=== PATIENT | female | born 1965 | race Caucasian/White ===

== ENCOUNTER 2016-08-27 12:14 | Day surgery (SDC) | payer OTHER ==
[~2016-08-27] VITALS: Ht 167.6 cm; Wt 90.7 kg
[~2016-08-27 12:14] MED LIST: ADVAIR 250/501 DISK IH; ADVAIR HFA120 INHALA IH; AMBIEN CR12.5 MG PO; AUGMENTIN875 MG PO; CARAFATE1 GM PO; CHANTIX1 MG PO; COUMADIN3 MG PO; DAILY VITAMIN1 EAC8 PO; DICYCLOMINE HCL20 MG PO; DILAUDID2 MG PO; DILAUDID4 MG PO; DILAUDID8 MG PO; DURAGESIC100 MCG TD; DURAGESIC25 MCG TD; ERGOCALCIF50000 UNIT PO; FENTANYL1 EAC1 TD; FIORICET,ESG1 TABLET PO; FLUOXETINE HCL20 MG PO; FLUOXETINE HCL40 MG PO; FLUOXETINE HCL60 MG PO; FUROSEMIDE20 MG PO; LEVAQUIN500 MG PO; LOVENOX100 MG/1 M SC; LOVENOX80 MG/0.8 SC; LYRICA150 MG PO; MAGNESIUM OXID400 MG PO; METOPROLOL SUCC25 MG PO; OXCARBAZEPINE150 MG PO; OXYCODONE HCL30 MG PO; PERCOCET 5/31 TABLET PO; POTASSIUM GLUCO99 M1 PO; PREDNISONE10 MG PO; PROMETHAZINE HC25 M1 PO; PROTONIX40 MG PO; PROVENTIL,2.5 MG/0.5 AEROSOL; SEROQUEL100 MG PO; SPIRIVA RESPIMAT4 GM IH; SPIRIVA1 INHALATI IH; TIZANIDINE HCL4 MG PO; TOPIRAMATE100 MG PO; VENTOLIN HFA18 GM IH; VITAMIN B-125000 MC1 PO; VITAMIN B-125000 MCG SL; VITAMIN B12-FO1 EACH SL; WELLBUTRIN75 MG PO; ZANAFLEX4 M1 PO; ZOFRAN4 MG PO; ZOLPIDEM TARTRA10 MG PO
[2016-08-27 13:15] VITALS: BP 117/63
[2016-08-27 13:38] LABS: INTER. NORMALIZED RATIO 1.1; PROTHROMBIN TIME 10.7 (9.2-11.2)
[2016-08-27 16:40] VITALS: BP 142/69
[2016-08-27 17:15] VITALS: BP 125/60
== END 2016-08-27 17:20 | disposition home or self-care (01) ==
LOC: SDC 12:14
PROVIDERS: Orthopaedic Surgery
PROC: 01Q53ZZ Repair Median Nerve, Percutaneous Approach (ICD-10-PCS; principal; 2016-08-27)
DX: G56.01 Carpal tunnel syndrome, right upper limb (principal); J44.9 Chronic obstructive pulmonary disease, unspecified; K21.9 Gastro-esophageal reflux disease without esophagitis; F17.200 Nicotine dependence, unspecified, uncomplicated
CPT/HCPCS: 85610; J0690; J1170; J2250; J3010; S0020

== ENCOUNTER 2016-10-02 13:00 | Day surgery (SDC) | payer OTHER ==
[~2016-10-02] VITALS: Ht 167.6 cm; Wt 89.3 kg
[2016-10-02 13:27] VITALS: BP 127/57
[2016-10-02 13:56] LABS: INTER. NORMALIZED RATIO 1.1; PROTHROMBIN TIME 10.9 (9.2-11.2)
[2016-10-02 16:50] VITALS: BP 120/73
== END 2016-10-02 17:55 | disposition home or self-care (01) ==
LOC: SDC 13:00
PROVIDERS: Orthopaedic Surgery
PROC: 01N50ZZ Release Median Nerve, Open Approach (ICD-10-PCS; principal; 2016-10-02)
DX: G56.02 Carpal tunnel syndrome, left upper limb (principal); Z79.01 Long term (current) use of anticoagulants
CPT/HCPCS: 85610; J0690; J1170; J2250; J3010; S0020

== ENCOUNTER → 2017-03-12 | Outpatient (CLI) | payer OTHER ==
[~2017-03-12] MED LIST changes: +ROXICODONE15 MG PO
== END | disposition home or self-care (01) ==
DX: M16.12 Unilateral primary osteoarthritis, left hip (principal); R26.2 Difficulty in walking, not elsewhere classified; M25.552 Pain in left hip; M25.652 Stiffness of left hip, not elsewhere classified; M62.81 Muscle weakness (generalized); Z74.1 Need for assistance with personal care
CPT/HCPCS: 97110 GP; 97150 GO; 97161 GP; 97165 GO; G8978 GP; G8979 GP; G8980 GP; G8987 GO; G8988 GO; G8989 GO

== ENCOUNTER 2017-03-17 22:07 | Inpatient (IN) | payer OTHER ==
[~2017-03-17] VITALS: Ht 167.6 cm; Wt 90.9 kg
[2017-03-18 05:59] VITALS: BP 115/62
[2017-03-18 06:13] LABS: INTER. NORMALIZED RATIO 1.1
[2017-03-18 06:20] LABS: PROTHROMBIN TIME 12.2 SEC (10.2-12.9)
[2017-03-18 11:03] LABS: HEMATOCRIT 31.1 % (36.0-46.0); MCH 29.6 PG (29.0-34.0); MCHC 33.1 G/DL (30.0-36.0); MCV 89.4 FL (83-99); MEAN PLAT.VOLUME 12.7 uM^3 (9.5-12.4); RBC DIS.WIDTH-CV 13.3 % (11.8-14.6); RBC DIS.WIDTH-SD 43.2 % (39-53); WHITE BLOOD COUNT 17.3 K/uL (4.1-10.2)
[2017-03-18 11:41] LABS: PLAT.SUFFICIENCY DECREASED; PLATELET COUNT 83 K/uL (156-360); RED BLOOD COUNT 3.48 M/uL (3.80-5.20)
[2017-03-18 12:35] VITALS: BP 142/71
[2017-03-18] MEDS ORDERED: COUMADIN3 MG PO (14:53)
[2017-03-18 15:24] VITALS: BP 106/58
[2017-03-18 20:03] VITALS: BP 112/64
[2017-03-18 23:30] VITALS: BP 109/61
[2017-03-19] VITALS (13 sets, daily range): BP systolic 100–141; BP diastolic 56–75
[2017-03-19 05:28] LABS: INTER. NORMALIZED RATIO 1.2; PROTHROMBIN TIME 13.6 SEC (10.2-12.9)
[2017-03-19 05:40] LABS: ANION GAP 6 MEQ/L (2-14); CHLORIDE 103 MEQ/L (99-109); GFR ESTIMATE (CALCULATED) > 59 mL/min/; GLUCOSE 122 mg/dL (70-99); SAMPLE HEMOLYSIS CHECK 0; SAMPLE ICTERIC CHECK 0; SAMPLE LIPEMIA CHECK 0; SODIUM 137 MEQ/L (136-147); UREA NITROGEN (BUN) 9 mg/dL (9-23)
[2017-03-19 05:45] LABS: HEMATOCRIT 24.4 % (36.0-46.0); MCV 87.8 FL (83-99)
[2017-03-20] VITALS: BP 99/49
[2017-03-20 04:20] VITALS: BP 106/58
[2017-03-20 05:33] LABS: HEMATOCRIT 25.9 % (36.0-46.0); MCV 87.8 FL (83-99)
[2017-03-20 06:03] LABS: INTER. NORMALIZED RATIO 1.4; PROTHROMBIN TIME 15.8 SEC (10.2-12.9)
[2017-03-20 08:19] VITALS: BP 116/57
[2017-03-20] MEDS ORDERED: OXYCODONE-APAP1 EACH PO (08:27)
[2017-03-20] MEDS ORDERED: SENNA PLUS TAB1 EACH PO (08:27)
[2017-03-20 12:00] VITALS: BP 95/240
== END 2017-03-20 14:37 | disposition home health service (06) | DRG 470 ==
LOC: 2SOUTH → ENRESERV 22:07 → 3WEST 03-18 05:23 → 2SOUTH 03-18 05:23 → 3WEST 03-18 12:17 → 2SOUTH 03-18 13:06 → 3WEST 03-20 14:37
PROVIDERS: Internal Medicine Hematology & Oncology; Orthopaedic Surgery
PROC: 0SRB02A Replacement of Left Hip Joint with Metal on Polyethylene Synthetic Substitute, Uncemented, Open Approach (ICD-10-PCS; principal; 2017-03-18)
DX: M16.12 Unilateral primary osteoarthritis, left hip (principal); D62 Acute posthemorrhagic anemia; M79.7 Fibromyalgia; E78.5 Hyperlipidemia, unspecified; K21.9 Gastro-esophageal reflux disease without esophagitis; F17.210 Nicotine dependence, cigarettes, uncomplicated; I35.1 Nonrheumatic aortic (valve) insufficiency; G89.29 Other chronic pain; G47.00 Insomnia, unspecified; Z95.2 Presence of prosthetic heart valve; Z98.84 Bariatric surgery status; Z79.01 Long term (current) use of anticoagulants
CPT/HCPCS: 73501; 80048; 85014; 85018; 85027; 85610; 85730; 86850; 86900; 86901; 86920; 97530 GO; C1713; J0131; J0330; J0690; J1100; J1170; J2250; J2405; J3010; J7050; P9016

== ENCOUNTER 2017-06-12 01:15 | Emergency (ER) | payer OTHER ==
[~2017-06-12] VITALS: Ht 167.6 cm; Wt 90.9 kg
[~2017-06-12 01:15] MED LIST changes: +OXYCODONE-APAP1 EACH PO; +SENNA PLUS TAB1 EACH PO
[2017-06-12 01:48] LABS: HEMATOCRIT 31.9 % (36.0-46.0); MCH 25.6 PG (29.0-34.0); MCHC 31.7 G/DL (30.0-36.0); MEAN PLAT.VOLUME 12.3 uM^3 (9.5-12.4); PLATELET COUNT 171 K/uL (156-360); RBC DIS.WIDTH-SD 44.8 % (39-53); RED BLOOD COUNT 3.94 M/uL (3.80-5.20); WHITE BLOOD COUNT 5.8 K/uL (4.1-10.2)
[2017-06-12 02:00] LABS: CHLORIDE 110 mEq/L (99-109); POTASSIUM 4.1 mEq/L (3.7-5.4); SODIUM 140 mEq/L (136-147)
[2017-06-12 02:02] LABS: GLUCOSE 95 mg/dL (70-99)
[2017-06-12 02:03] LABS: ANION GAP 6 MEQ/L (2-14)
[2017-06-12 02:05] LABS: GFR ESTIMATE (CALCULATED) > 59 mL/min/
[2017-06-12 02:06] LABS: UREA NITROGEN (BUN) 13 mg/dL (9-23)
[2017-06-12 02:09] LABS: TROP-I INTERPRETATION NEGATIVE; TROPONIN-I 0.01 ng/mL (0.0-0.30)
[2017-06-12 03:05] LABS: INTER. NORMALIZED RATIO 1.8; PROTHROMBIN TIME 20.9 SEC (10.2-12.9)
[2017-06-12] MEDS ORDERED: MEDROL DOSEPAK4 MG PO (03:31)
[2017-06-12 03:40] VITALS: BP 119/70
== END 2017-06-12 03:41 | disposition home or self-care (01) ==
LOC: EME 01:15
PROVIDERS: Emergency Medicine
DX: M25.552 Pain in left hip (principal); M54.32 Sciatica, left side; G89.29 Other chronic pain; J44.9 Chronic obstructive pulmonary disease, unspecified; M79.7 Fibromyalgia; F32.9 Major depressive disorder, single episode, unspecified; F41.9 Anxiety disorder, unspecified; K21.9 Gastro-esophageal reflux disease without esophagitis; Z95.2 Presence of prosthetic heart valve; Z79.01 Long term (current) use of anticoagulants; Z98.84 Bariatric surgery status; Z87.891 Personal history of nicotine dependence
CPT/HCPCS: 71020; 80048; 84484; 85027; 85610; 93005; 99281; 99284; J3010

== ENCOUNTER 2017-06-12 21:01 | Emergency (ER) | payer OTHER ==
[~2017-06-12] VITALS: Ht 167.6 cm; Wt 90.9 kg
[~2017-06-12 21:01] MED LIST changes: +MEDROL DOSEPAK4 MG PO
[2017-06-12 22:37] LABS: EOSINOPHIL COUNT 0.1 K/uL (0-0.3); HEMATOCRIT 33.3 % (36.0-46.0); IMMATURE GRANULOCYTE (%) 0.3 % (0.0-0.7); INSTRUMENT ABS NEUTROPHIL CT 4.6 K/uL; MCH 25.5 PG (29.0-34.0); MCHC 32.1 G/DL (30.0-36.0); MCV 79.3 FL (83-99); MEAN PLAT.VOLUME 13.2 uM^3 (9.5-12.4); MONOCYTE (%) 7.3 % (3-12); MONOCYTE COUNT 0.5 K/uL (0-0.8); NEUTROPHIL (%) 75.1 % (45-76); NEUTROPHIL COUNT 4.6 K/uL (1.8-6.4); PLATELET COUNT 193 K/uL (156-360); RBC DIS.WIDTH-CV 15.1 % (11.8-14.6); RBC DIS.WIDTH-SD 43.4 % (39-53); WHITE BLOOD COUNT 6.2 K/uL (4.1-10.2)
[2017-06-12 22:45] LABS: PROTHROMBIN TIME 22.8 SEC (10.2-12.9)
[2017-06-12 22:50] LABS: CHLORIDE 109 mEq/L (99-109); POTASSIUM 4.8 mEq/L (3.7-5.4); SODIUM 142 mEq/L (136-147)
[2017-06-12 22:52] LABS: GLUCOSE 94 mg/dL (70-99)
[2017-06-12 22:53] LABS: ANION GAP 10 MEQ/L (2-14)
[2017-06-12 22:54] LABS: TOTAL BILIRUBIN 0.2 mg/dL (0.0-1.0)
[2017-06-12 22:56] LABS: ALKALINE PHOSPHATASE 93 IU/L (3-129); GFR ESTIMATE (CALCULATED) > 59 mL/min/
[2017-06-12 22:57] LABS: UREA NITROGEN (BUN) 11 mg/dL (9-23)
[2017-06-12 23:00] VITALS: BP 120/74
[2017-06-12 23:00] LABS: TROP-I INTERPRETATION NEGATIVE; TROPONIN-I 0.02 ng/mL (0.0-0.30)
[2017-06-12 23:32] LABS: ADD MIUA? YES; BILIRUBIN SMALL; BLOOD NEGATIVE; COLOR AMBER ((YELLOW)); GLUCOSE (STRIP) NEGATIVE; KETONES 5; LEUKOCYTES NEGATIVE; NITRITE NEGATIVE; PROTEIN (STRIP) 100
[2017-06-12 23:46] LABS: BACTERIA RARE /HPF; EPITHELIAL CELLS 3+ /HPF; MUCUS TRACE /LPF; UCUL ADDED? NO; WHITE BLOOD CELLS 0-5 /HPF (0-5)
[2017-06-12 23:59] LABS: SPECIFIC GRAVITY 1.062 (1.000-1.030)
== END 2017-06-13 00:19 | disposition left against medical advice (07) ==
LOC: EME 21:01
PROVIDERS: Emergency Medicine
DX: M54.42 Lumbago with sciatica, left side (principal); M79.7 Fibromyalgia; K21.9 Gastro-esophageal reflux disease without esophagitis; J44.9 Chronic obstructive pulmonary disease, unspecified; F41.9 Anxiety disorder, unspecified; F32.9 Major depressive disorder, single episode, unspecified; Z98.84 Bariatric surgery status; Z87.891 Personal history of nicotine dependence; Z79.01 Long term (current) use of anticoagulants
CPT/HCPCS: 80053; 81003; 84484; 85025; 85610; 93005; 99281; 99283; J1100; J3010

== ENCOUNTER 2017-06-13 02:04 | Emergency (ER) | payer OTHER ==
[~2017-06-13] VITALS: Ht 167.6 cm; Wt 95.1 kg
[2017-06-13 03:05] VITALS: BP 129/75
== END 2017-06-13 03:05 | disposition home or self-care (01) ==
LOC: EXP 02:04 → EME 02:04 → EXP 03:05
DX: M54.9 Dorsalgia, unspecified (principal); G89.29 Other chronic pain; M79.7 Fibromyalgia; M19.90 Unspecified osteoarthritis, unspecified site; K21.9 Gastro-esophageal reflux disease without esophagitis; J44.9 Chronic obstructive pulmonary disease, unspecified; F41.9 Anxiety disorder, unspecified; F32.9 Major depressive disorder, single episode, unspecified; Z98.84 Bariatric surgery status; Z87.891 Personal history of nicotine dependence; Z79.01 Long term (current) use of anticoagulants
CPT/HCPCS: 99281; 99284

== ENCOUNTER 2017-07-17 22:45 | Emergency (ER) | payer OTHER ==
[~2017-07-17] VITALS: Ht 167.6 cm; Wt 92.5 kg
[2017-07-17 22:50] VITALS: BP 108/69
== END 2017-07-18 00:50 | disposition left against medical advice (07) ==
LOC: EME 22:45
DX: M25.562 Pain in left knee (principal); G89.29 Other chronic pain; Z53.21 Procedure and treatment not carried out due to patient leaving prior to being seen by health care provider

== ENCOUNTER 2017-10-26 21:01 | Emergency (ER) | payer OTHER ==
[~2017-10-26] VITALS: Ht 167.6 cm; Wt 97.2 kg
[2017-10-26 23:39] LABS: HEMATOCRIT 43.2 % (36.0-46.0); MCH 27.6 PG (29.0-34.0); MCHC 33.1 G/DL (30.0-36.0); MCV 83.4 FL (83-99); RBC DIS.WIDTH-CV 16.6 % (11.8-14.6); RBC DIS.WIDTH-SD 50.6 % (39-53); WHITE BLOOD COUNT 7.2 K/uL (4.1-10.2)
[2017-10-26 23:45] LABS: INTER. NORMALIZED RATIO 1.7
[2017-10-26 23:59] LABS: CHLORIDE 103 MEQ/L (99-109); CREATININE 0.6 MG/DL (0.6-1.3); GFR ESTIMATE (CALCULATED) > 59 mL/min/; GLUCOSE 91 mg/dL (70-99); POTASSIUM 4.7 MEQ/L (3.7-5.4); SODIUM 137 MEQ/L (136-147); UREA NITROGEN (BUN) 13 mg/dL (9-23)
[2017-10-27 00:10] LABS: HEMOGLOBIN 14.3 G/DL (11.9-15.5); RED BLOOD COUNT 5.18 M/uL (3.80-5.20)
[2017-10-27 00:12] LABS: PLAT.SUFFICIENCY ADEQUATE; PLATELET COUNT 123 K/uL (156-360)
[2017-10-27] MEDS ORDERED: MEDROL DOSEPAK4 MG PO (00:55)
[2017-10-27] MEDS ORDERED: PROMETHAZINE HC25 M1 PO (01:04)
[2017-10-27 01:13] VITALS: BP 144/75
== END 2017-10-27 01:14 | disposition home or self-care (01) ==
LOC: EME 21:01
PROVIDERS: Physician Assistant
DX: R51 Headache (principal); M79.7 Fibromyalgia; K21.9 Gastro-esophageal reflux disease without esophagitis; J44.9 Chronic obstructive pulmonary disease, unspecified; G43.919 Migraine, unspecified, intractable, without status migrainosus; J30.9 Allergic rhinitis, unspecified; M19.90 Unspecified osteoarthritis, unspecified site; F41.9 Anxiety disorder, unspecified; F32.9 Major depressive disorder, single episode, unspecified; F17.200 Nicotine dependence, unspecified, uncomplicated; Z79.01 Long term (current) use of anticoagulants; Z90.49 Acquired absence of other specified parts of digestive tract; Z98.84 Bariatric surgery status
CPT/HCPCS: 80048; 85027; 85610; 99281; 99284; J0780; J1100; J1200; J7030